=== PATIENT | male | born 1965 | race Asian ===

== ENCOUNTER 2016-11-29 09:45 | Day surgery (SDC) | payer BC ==
[~2016-11-29] VITALS: Ht 180.3 cm; Wt 85.5 kg
[~2016-11-29 09:45] MED LIST: HYDR-762 PO; HYDR25TA6 PO; LOSA25TA2 PO
[2016-11-29 10:31] VITALS: Ht 180.3 cm; Wt 85.5 kg
[2016-11-29] MEDS ORDERED: LEVO75TA5 PO (10:44)
[2016-11-29] MEDS ORDERED: CHLO25TA13 PO (10:44)
[2016-11-29] MEDS ORDERED: FENTAnyl 50 MCG/ML VIAL ONE (11:02)
[2016-11-29] MEDS ORDERED: LIDOCAINE 100 MG SYRINGE ONE (11:02)
[2016-11-29] MEDS ORDERED: PROPOFOL 40 ML ONE (11:02)
[2016-11-29 11:08] VITALS: BP 155/80; PULSE 84; RESP 12
--- NOTE | 2016-11-29 11:25 | OPPN ---
Date/Time of Note Date/Time of Note DATE: 11/29/16 TIME: 11:23 Proc Note GI Procedure Date 11/29/16 Indication: screening/surveillance Pre-procedure Diagnosis r/o colon polyps Post-procedure Diagnosis normal exam Procedure Performed: Colonoscopy Surgeon see signature line Hospice Art Therapist none Anesthesia Type: MAC Anesthesiologist: Felix Weiss M.D. Tourniquet Time none EBL none Transfusion required none Biopsy 1: none Grafts/Implants none Tubes/Drains none Complication(s) none Disposition: PACU Procedure Description colonoscopy with mac normal exam MAXIMINO CONTRERAS MD Nov 29, 2016 11:25
[2016-11-29 11:47] VITALS: BP 122/80; RESP 18
--- NOTE | 2016-11-29 12:55 | GILP ---
DATE OF PROCEDURE: PROCEDURE PERFORMED: Screening colonoscopy to rule out colon polyps. POSTOPERATIVE DIAGNOSIS: Normal examination. DESCRIPTION OF PROCEDURE: After informed written consent was obtained, the patient was asked to lie on the left lateral side. Intravenous anesthesia was given by anesthesiologist, Dr. Weiss. Wh en the patient became somnolent, the Olympus video colonoscope was introduced into the rectum and sc ope was advanced all the way to the cecum. Entire colon appeared normal with no evidence of mucosal abnormality. No polyps noted. On the way out, retroflexion was performed. Minimal internal hemor rhoids were noted. When the scope was withdrawn no additional abnormalities detected and the proced ure was terminated. PLAN: Recommend repeat colonoscopy in 10 years. Dictated By: MAXIMINO MELGOZA/MELANIE Conf#: [id number] DID#: [id number]
== END 2016-11-29 11:49 | disposition home or self-care (01) ==
LOC: GIL 09:45
PROVIDERS: ATTEND Internal Medicine Gastroenterology
DX: Z12.11 Encounter for screening for malignant neoplasm of colon (principal); K64.8 Other hemorrhoids; I10 Essential (primary) hypertension; E03.9 Hypothyroidism, unspecified
CPT/HCPCS: 45378; J2001; J3010; Z7610